=== PATIENT | male | born 1960 | race Caucasian/White ===

== ENCOUNTER 2017-05-25 20:47 | Observation (INO) | payer OTHER ==
[2017-05-25] MEDS ORDERED: ONDANSETRON 4 MG/2 ML VIAL ONE (21:13)
[2017-05-25] MEDS ORDERED: ONDANSETRON 4 MG/2 ML VIAL IVP ONE (21:16)
[2017-05-25] MEDS ORDERED: NS 1,000 ML IV ONE ×2 (21:17→22:17)
--- NOTE | 2017-05-25 21:26 | EDPHY ---
H & P Time Seen by Provider: 05/25/17 21:09 HPI/ROS: CHIEF COMPLAINT: Fever and chills HISTORY OF PRESENT ILLNESS: The patient has a head cold for the last 4 days the with mild headache and sore throat and nonproductive cough. Today he had colonoscopy around noon was home around 1:00 p.m.. At 1900 developed severe chills with some lower abdominal pain and nausea. Symptoms are severe but not associated with worsening headache or stiff neck. Some diarrhea. No recent foreign travel. Chills are severe. REVIEW OF SYSTEMS: Eye: no change in vision ENT: HPI no earache Cardiac: no chest pain or syncope Pulmonary: HPI Abdomen: HPI Musculoskeletal: no back pain Skin: no rash Neuro: no headache Constitutional: HPI : no urinary symptoms A comprehensive 10 point review of systems is otherwise negative aside from elements mentioned in the history of present illness. PAST MEDICAL HISTORY: Depression, bilateral hand surgery Social history: No recent foreign travel. General Appearance: Alert and conversant, cooperative. He is having active chills while we discussed his history. Eyes: No scleral icterus. ENT, Mouth: Normal mucous membranes. No pharyngeal erythema or exudate and no trismus. Respiratory: Normal respiratory effort, breath sounds equal, lungs are clear to auscultation. Cardiovascular: Regular rate and rhythm. Gastrointestinal: Suprapubic tenderness but no rebound or guarding. Neurological: Alert and oriented x3. Normally conversant. Face symmetric, normal movement and sensation in all extremities. Skin: Warm and dry, no rashes. Skin is hot to the touch. Musculoskeletal: No peripheral edema and no joint swelling. Normal range of motion of the neck, supple. Psychiatric: Not agitated. Emergency Department course/MDM: Plan for i-STAT and CT abdomen and pelvis to exclude perforation of intestine, with colonoscopy today and 2 polyps biopsied. Chest x-ray and influenza testing. 2199: CT abdomen pelvis no evidence of perforation per Dr. Carmona. Chest x-ray personally interpreted shows bronchitis but no pneumonia. 2234: Toradol not given because of creatinine 1.4. Fentanyl 100 mcg IV, Ativan 0.5 mg IV. Admission for supportive care. Patient has mild 2 beat clonus on each foot, serotonin syndrome was considered but he only got fentanyl and Versed for his procedure. He had symptoms on arrival and clearly is normal mentation and does not have delirium at this time. Admission supportive care as he still feels quite unwell. Smoking Status: Never smoked Constitutional: Initial Vital Signs Temperature (C) 37 C 05/25/17 20:57 Heart Rate 86 05/25/17 20:57 Respiratory Rate 20 05/25/17 20:57 Blood Pressure 138/92 H 05/25/17 20:57 O2 Sat (%) 94 05/25/17 20:57 O2 Delivery Mode Room Air Allergies/Adverse Reactions: wasp stings Allergy (Uncoded 05/25/17 21:01) Home Medications: Medication Instructions Recorded Depakote 02/06/16 Zoloft 100mg (*) 02/06/16 Medical Decision Making - Diagnostics Imaging Results: Imaging Impressions Chest X-Ray 05/25/17 21:24 Impression: Clear lungs. No explanation for fever and chills. Abdomen/Pelvis CT 05/25/17 21:31 Impression: 1. No pneumoperitoneum or evidence of bowel perforation. 2. No intraabdominal mass, lymphadenopathy, or localized inflammatory process. Findings discussed with Emergency Department physician, Bobby Abarca M.D., on May 25, 2017 at 2203. Differential Diagnosis: Differential for chills considered including but not limited to UTI, pneumonia, intestinal perforation, medication reaction Consult/Admit Bed Type: [place] [id number] - Data Points Laboratory Results: Laboratory Results 05/25/17 21:20 05/25/17 21:20 05/25/17 05/25/17 05/25/17 21:36 21:20 21:20 WBC 6.13 10^3/uL 10^3/uL (3.80-9.50) RBC 5.28 10^6/uL 10^6/uL (4.40-6.38) Hgb 17.8 g/dL H g/dL (13.7-17.5) POC Hgb Hct 49.3 % % (40.0-51.0) POC Hct MCV 93.4 fL fL (81.5-99.8) MCH 33.7 pg pg (27.9-34.1) MCHC 36.1 g/dL g/dL (32.4-36.7) RDW 12.5 % % (11.5-15.2) Plt Count 187 10^3/uL 10^3/uL (150-400) MPV 10.3 fL fL (8.7-11.7) Neut % (Auto) 74.7 % H % (39.3-74.2) Lymph % (Auto) 13.7 % L % (15.0-45.0) [place] % (Auto) 10.3 % % (4.5-13.0) Eos % (Auto) 0.7 % % (0.6-7.6) Baso % (Auto) 0.3 % % (0.3-1.7) Nucleat RBC Rel Count 0.0 % % (0.0-0.2) Absolute Neuts (auto) 4.58 10^3/uL 10^3/uL (1.70-6.50) Absolute Lymphs (auto) 0.84 10^3/uL L 10^3/uL (1.00-3.00) Absolute Monos (auto) 0.63 10^3/uL 10^3/uL (0.30-0.80) Absolute Eos (auto) 0.04 10^3/uL 10^3/uL (0.03-0.40) Absolute Basos (auto) 0.02 10^3/uL 10^3/uL (0.02-0.10) Absolute Nucleated RBC 0.00 10^3/uL 10^3/uL (0-0.01) Immature Gran % 0.3 % % (0.0-1.1) Immature Gran # 0.02 10^3/uL 10^3/uL (0.00-0.10) POC Sodium Sodium 141 mEq/L mEq/L (134-144) POC Potassium Potassium 4.5 mEq/L mEq/L (3.5-5.2) POC Chloride Chloride 99 mEq/L mEq/L (97-110) Carbon Dioxide 28 mEq/l mEq/l (22-31) Anion Gap 14 mEq/L mEq/L (8-16) POC BUN BUN 29 mg/dL H mg/dL (7-23) Creatinine 1.2 mg/dL mg/dL (0.7-1.3) POC Creatinine Estimated GFR > 60 Glucose 108 mg/dL H mg/dL (70-100) POC Glucose Calcium 9.9 mg/dL mg/dL (8.5-10.4) Nasal Influenza A PCR NEGATIVE FOR FLU A (NEGATIVE) Nasal Influenza B PCR NEGATIVE FOR FLU B (NEGATIVE) 05/25/17 21:18 WBC RBC Hgb POC Hgb 17.7 gm/dL H gm/dL (13.7-17.5) Hct POC Hct 52 % H % (40-51) MCV MCH MCHC RDW Plt Count MPV Neut % (Auto) Lymph % (Auto) [place] % (Auto) Eos % (Auto) Baso % (Auto) Nucleat RBC Rel Count Absolute Neuts (auto) Absolute Lymphs (auto) Absolute Monos (auto) Absolute Eos (auto) Absolute Basos (auto) Absolute Nucleated RBC Immature Gran % Immature Gran # POC Sodium 142 mEq/L mEq/L (134-144) Sodium POC Potassium 4.1 mEq/L mEq/L (3.3-5.0) Potassium POC Chloride 101 mEq/L mEq/L (97-110) Chloride Carbon Dioxide Anion Gap POC BUN 29 mg/dL H mg/dL (7-23) BUN Creatinine POC Creatinine 1.4 mg/dL H mg/dL (0.7-1.3) Estimated GFR Glucose POC Glucose 109 mg/dL H mg/dL (70-100) Calcium Nasal Influenza A PCR Nasal Influenza B PCR Medications Given: Acetaminophen (Tylenol) 650 mg PO Q4HRS PRN PRN Reason: Pain, Mild/Fever, Can Take PO Stop: 11/21/17 22:41 Last Admin: 05/26/17 00:32 Dose: 650 mg Throat Lozenges (Cepacol Lozenge) 1 ea PO PRN PRN PRN Reason: Sore Throat Stop: 11/22/17 00:09 Last Admin: 05/26/17 00:32 Dose: 1 ea Discontinued Medications Fentanyl (Sublimaze) 100 mcg IVP EDNOW ONE Stop: 05/25/17 22:38 Last Admin: 05/25/17 22:53 Dose: Not Given Sodium Chloride (Ns) 1,000 mls @ 0 mls/hr IV ONCE ONE; Wide Open PRN Reason: Protocol Stop: 05/25/17 21:18 Last Admin: 05/25/17 21:17 Dose: 1,000 mls Sodium Chloride (Ns) 1,000 mls @ 0 mls/hr IV EDNOW ONE; Wide Open PRN Reason: Protocol Stop: 05/25/17 22:18 Last Admin: 05/25/17 22:30 Dose: 1,000 mls Ketorolac Tromethamine (Toradol) 15 mg IVP EDNOW ONE Stop: 05/25/17 21:28 Last Admin: 05/25/17 21:43 Dose: Not Given Lorazepam (Ativan Injection) 1 mg IVP EDNOW ONE Stop: 05/25/17 22:39 Last Admin: 05/25/17 23:07 Dose: Not Given Lorazepam (Ativan Injection) 0.5 mg IVP EDNOW ONE Stop: 05/25/17 22:44 Last Admin: 05/25/17 22:53 Dose: 0.5 mg Ondansetron HCl (Zofran) 4 mg IVP EDNOW ONE Stop: 05/25/17 21:17 Last Admin: 05/25/17 21:17 Dose: 4 mg Point of Care Test Results: 05/25/17 21:18 POC Sodium 142 POC Potassium 4.1 POC Chloride 101 POC BUN 29 H POC Creatinine 1.4 H POC Glucose 109 H Departure - Departure Disposition: [facility] Acute Clinical Impression: Chills, Nausea Abdominal pain Qualifiers: Abdominal location: lower abdomen, unspecified Qualified Code(s): R10.30 - Lower abdominal pain, unspecified Condition: Good
[2017-05-25] MEDS ORDERED: KETOROLAC 30 MG/1 ML SDV IVP ONE (21:27)
[2017-05-25 22:04] LABS: % IMMATURE GRANULYOCYTES 0.3 % (0.0-1.1); ABSOLUTE IMMATURE GRANULOCYTES 0.02 10^3/uL (0.00-0.10); ADD DIFF? NO; ADD MORPH? NO; ADD SCAN? NO; ATYPICAL LYMPHOCYTE FLAG 10 (0-99); FRAGMENT RBC FLAG 0 (0-99); HEMATOCRIT 49.3 % (40.0-51.0); HEMOGLOBIN 17.8 g/dL (13.7-17.5); LEFT SHIFT FLG 0 (0-99); LIPEMIA HEMOLYSIS FLAG 90 (0-99); MEAN CELL HEMOGLOBIN 33.7 pg (27.9-34.1); MEAN CELL HEMOGLOBIN CONCENTR. 36.1 g/dL (32.4-36.7); MEAN CELL VOLUME 93.4 fL (81.5-99.8); MEAN PLATELET VOLUME 10.3 fL (8.7-11.7); PLATELET CLUMPS FLAG 0 (0-99); PLATELET COUNT 187 10^3/uL (150-400); RED BLOOD CELL COUNT 5.28 10^6/uL (4.40-6.38); RED CELL DISTRIBUTION WIDTH 12.5 % (11.5-15.2)
[2017-05-25 22:21] LABS: ANION GAP 14 mEq/L (8-16); CALCIUM 9.9 mg/dL (8.5-10.4); CARBON DIOXIDE 28 mEq/l (22-31); CHLORIDE 99 mEq/L (97-110); CREATININE 1.2 mg/dL (0.7-1.3); GLOMERULAR FILTRATION RATE > 60; GLUCOSE 108 mg/dL (70-100); POTASSIUM 4.5 mEq/L (3.5-5.2); SODIUM 141 mEq/L (134-144)
[2017-05-25] MEDS ORDERED: fentaNYL 100 MCG/2 ML INJ IVP ONE (22:37)
[2017-05-25] MEDS ORDERED: LORazepam 2 MG/ML INJ IVP ONE ×2 (22:38→22:43)
[2017-05-25] MEDS ORDERED: ACETAMINOPHEN 325 MG TAB PO PRN (22:42)
[2017-05-25] MEDS ORDERED: ONDANSETRON 4 MG/2 ML VIAL IVP PRN (22:42)
[2017-05-25] MEDS ORDERED: ONDANSETRON DISINTEGRATING 4 MG TAB PO PRN (22:42)
[2017-05-26] VITALS: RESP 16
[2017-05-26] MEDS ORDERED: CEPACOL LOZENGE PO PRN (00:10)
--- NOTE | 2017-05-26 01:57 | PDGENHP ---
History and Physical - Chief Complaint Chills - History of Present Illness 57 yo M w/ hx of depression presents with chills. Patient had a screening colonoscopy on the day of admission that was reportedly uncomplicated. He went home and noted severe chills that lasted several hours. When he felt he couldn' t warm up at home he decided to come to the ED. Of note, he reports having upper respiratory cold symptoms for the last 3-4 days. In the ED work-up was unremarkable including an abdominal CT ruling out perforation or serious complication from the procedure. In the ED there was some concern about possible serotonin syndrome (patient on sertraline) so patient was admitted for observation. History Information - Allergies/Home Medication List Allergies/Adverse Reactions: wasp stings Allergy (Uncoded 05/25/17 21:01) Home Medications: Depakote 02/06/16 [Last Taken Unknown] Zoloft 100mg (*) 02/06/16 [Last Taken Unknown] I have personally reviewed and updated: family history, medical history - Past Medical History Additional medical history: Depression - Family History Positive for: cancer Additional family history: Multiple family memebers with colon cancer, mother with breast cancer - Social History Smoking Status: Never smoked Review of Systems Review of Systems: ROS: 10pt was reviewed & negative except for what was stated in HPI & below Physical Exam Physical Exam: Temp Pulse Resp BP Pulse Ox 38.3 C 88 16 114/72 91 L 05/25/17 23:57 05/25/17 23:57 05/25/17 23:57 05/25/17 23:57 05/25/17 23:57 Constitutional: no apparent distress, not in pain Eyes: PERRL, EOMI Ears, Nose, Mouth, Throat: moist mucous membranes, no oral mucosal ulcers Cardiovascular: regular rate and rhythym, no murmur, rub, or gallop Respiratory: no respiratory distress, clear to auscultation Gastrointestinal: normoactive bowel sounds, soft, non-tender abdomen Genitourinary: no bladder fullness, no bladder tenderness Skin: warm, normal color Musculoskeletal: full muscle strength, no muscle tenderness Neurologic: AAOx3, CN II-XII Intact Psychiatric: interacting appropriately, not anxious Lab Data & Imaging Review 05/25/17 21:20 05/25/17 21:20 WBC 6.13 10^3/uL (3.80-9.50) 05/25/17 21:20 RBC 5.28 10^6/uL (4.40-6.38) 05/25/17 21:20 Hgb 17.8 g/dL (13.7-17.5) H 05/25/17 21:20 POC Hgb 17.7 gm/dL (13.7-17.5) H 05/25/17 21:18 Hct 49.3 % (40.0-51.0) 05/25/17 21:20 POC Hct 52 % (40-51) H 05/25/17 21:18 MCV 93.4 fL (81.5-99.8) 05/25/17 21:20 MCH 33.7 pg (27.9-34.1) 05/25/17 21:20 MCHC 36.1 g/dL (32.4-36.7) 05/25/17 21:20 RDW 12.5 % (11.5-15.2) 05/25/17 21:20 Plt Count 187 10^3/uL (150-400) 05/25/17 21:20 MPV 10.3 fL (8.7-11.7) 05/25/17 21:20 Neut % (Auto) 74.7 % (39.3-74.2) H 05/25/17 21:20 Lymph % (Auto) 13.7 % (15.0-45.0) L 05/25/17 21:20 [place] % (Auto) 10.3 % (4.5-13.0) 05/25/17 21:20 Eos % (Auto) 0.7 % (0.6-7.6) 05/25/17 21:20 Baso % (Auto) 0.3 % (0.3-1.7) 05/25/17 21:20 Nucleat RBC Rel Count 0.0 % (0.0-0.2) 05/25/17 21:20 Absolute Neuts (auto) 4.58 10^3/uL (1.70-6.50) 05/25/17 21:20 Absolute Lymphs (auto) 0.84 10^3/uL (1.00-3.00) L 05/25/17 21:20 Absolute Monos (auto) 0.63 10^3/uL (0.30-0.80) 05/25/17 21:20 Absolute Eos (auto) 0.04 10^3/uL (0.03-0.40) 05/25/17 21:20 Absolute Basos (auto) 0.02 10^3/uL (0.02-0.10) 05/25/17 21:20 Absolute Nucleated RBC 0.00 10^3/uL (0-0.01) 05/25/17 21:20 Immature Gran % 0.3 % (0.0-1.1) 05/25/17 21:20 Immature Gran # 0.02 10^3/uL (0.00-0.10) 05/25/17 21:20 POC Sodium 142 mEq/L (134-144) 05/25/17 21:18 Sodium 141 mEq/L (134-144) 05/25/17 21:20 POC Potassium 4.1 mEq/L (3.3-5.0) 05/25/17 21:18 Potassium 4.5 mEq/L (3.5-5.2) 05/25/17 21:20 POC Chloride 101 mEq/L (97-110) 05/25/17 21:18 Chloride 99 mEq/L (97-110) 05/25/17 21:20 Carbon Dioxide 28 mEq/l (22-31) 05/25/17 21:20 Anion Gap 14 mEq/L (8-16) 05/25/17 21:20 POC BUN 29 mg/dL (7-23) H 05/25/17 21:18 BUN 29 mg/dL (7-23) H 05/25/17 21:20 Creatinine 1.2 mg/dL (0.7-1.3) 05/25/17 21:20 POC Creatinine 1.4 mg/dL (0.7-1.3) H 05/25/17 21:18 Estimated GFR > 60 05/25/17 21:20 Glucose 108 mg/dL (70-100) H 05/25/17 21:20 POC Glucose 109 mg/dL (70-100) H 05/25/17 21:18 Calcium 9.9 mg/dL (8.5-10.4) 05/25/17 21:20 Nasal Influenza A PCR NEGATIVE FOR FLU A (NEGATIVE) 05/25/17 21:36 Nasal Influenza B PCR NEGATIVE FOR FLU B (NEGATIVE) 05/25/17 21:36 Imaging Review: CT A/P unremarkable, no perforation. Visualized and Interpreted Chest x-ray results: Yes Chest X-Ray results: no infiltrate, normal Assessment & Plan Assessment: 57 yo M admitted with chills in the setting of viral illness. Plan: 1. Fever, chills - Suspect viral illness noting upper respiratory symptoms for 3 -4 days prior to admission; flu negative. Unclear why symptoms were exacerbated a few hours after screening colonoscopy. There was some concern in the ED for serotonin syndrome noting patient is on sertraline and received fentanyl during the procedure, but this seems very unlikely as patient again received fentanyl in our ED and felt symptomatically improved. CT A/P without evidence of procedural complication. - Supportive care with APAP, IVF, and anti-emetics 2. Depression - On sertraline as outpatient, I see no reason to discontinue this at this time. Diet - Regular Code - Full Ppx - SCDs Dispo - Admit to observation status
[2017-05-26 05:22] LABS: % IMMATURE GRANULYOCYTES 0.3 % (0.0-1.1); ABSOLUTE IMMATURE GRANULOCYTES 0.03 10^3/uL (0.00-0.10); ADD DIFF? NO; ADD MORPH? NO; ADD SCAN? NO; ATYPICAL LYMPHOCYTE FLAG 0 (0-99); FRAGMENT RBC FLAG 0 (0-99); HEMOGLOBIN 14.7 g/dL (13.7-17.5); LEFT SHIFT FLG 0 (0-99); LIPEMIA HEMOLYSIS FLAG 90 (0-99); MEAN CELL HEMOGLOBIN 32.4 pg (27.9-34.1); MEAN CELL HEMOGLOBIN CONCENTR. 34.2 g/dL (32.4-36.7); MEAN CELL VOLUME 94.7 fL (81.5-99.8); MEAN PLATELET VOLUME 10.1 fL (8.7-11.7); PLATELET CLUMPS FLAG 10 (0-99); PLATELET COUNT 151 10^3/uL (150-400); RED BLOOD CELL COUNT 4.54 10^6/uL (4.40-6.38); RED CELL DISTRIBUTION WIDTH 12.4 % (11.5-15.2)
[2017-05-26 05:35] LABS: ANION GAP 11 mEq/L (8-16); CARBON DIOXIDE 24 mEq/l (22-31); CHLORIDE 106 mEq/L (97-110); CREATININE 1.4 mg/dL (0.7-1.3); GLOMERULAR FILTRATION RATE 52; GLUCOSE 111 mg/dL (70-100); POTASSIUM 5.3 mEq/L (3.5-5.2); SODIUM 141 mEq/L (134-144)
--- NOTE | 2017-05-26 09:51 | ASMTCASEMG ---
Living Arrangements What is your living Answers: With Spouse arrangement? Who do you live with? Type Of Residence What kind of residence do Answers: House you live in? Discharge Plan Comments Coordination Status Comments Notes: Pt is a 57 y/o man admitted for chills. Anticipates that pt will discharge independent when medically stable. No therapies ordered at this time. CM available for d/c needs. Plan: Independent Date Signed: 05/26/2017 09:51 AM Electronically Signed By:CHIDI Meraz
[2017-05-26 11:30] LABS: ALBUMIN 3.5 g/dL (3.5-5.0); BILIRUBIN,TOTAL 0.6 mg/dL (0.1-1.4); BILIRUBIN-CONJUGATED 0.2 mg/dL (0.0-0.5); BILIRUBIN-UNCONJUGATED 0.4 mg/dL (0.0-1.1); C-REACTIVE PROTEIN 41.7 mg/L (<10.0); TOTAL PROTEIN 5.8 g/dL (6.3-8.2)
[2017-05-26 11:49] VITALS: BP 118/74; PULSE 65; TEMP 98.4; O2SAT 95
[2017-05-26 11:58] LABS: PROCALCITONIN 0.54 ng/mL (0.02-0.10)
[2017-05-26] MEDS ORDERED: ZOLPIDEM TARTRATE 5 MG TAB PO PRN (14:21)
[2017-05-26] MEDS ORDERED: LORazepam 0.5 MG TAB PO PRN (14:21)
--- NOTE | 2017-05-26 16:29 | ASDISCHSUM ---
Discharge Information Plan Status:Home with No Needs Medically Cleared to Leave:05/25/2017 Discharge Date:05/26/2017 03:31 PM CM D/C Disposition: ADT D/C Disposition:Home, Routine, Self-Care Projected Discharge Date:05/26/2017 12:00 AM Transportation at D/C: Discharge Delay Reason: Follow-Up Date:05/26/2017 12:00 AM Discharge Slot: Final Diagnosis: Placement Information Patient Contact Information Contact Name:FELIPE Relationship: Address:[address] City:[place] Alternate Phone: [facility]/Zip Code:[place] [address] Email: Financial Information Financial Class:[facility] Primary Plan Desc:[place]ight[employer] Primary Plan Number:[id number] Secondary Plan Desc: Secondary Plan Number: Assessment Information [facility] Initial CM Assessment Living Arrangements What is your living Answers: With Spouse arrangement? Who do you live with? Type Of Residence What kind of residence do Answers: House you live in? Discharge Plan Comments Coordination Status Comments Notes: Pt is a 57 y/o man admitted for chills. Anticipates that pt will discharge independent when medically stable. No therapies ordered at this time. CM available for d/c needs. Plan: Independent Date Signed: 05/26/2017 09:51 AM Electronically Signed By:CHIDI Meraz Intervention Information
--- NOTE | 2017-05-26 18:23 | PDDCSUM ---
Discharge Summary Discharge Summary: DISCHARGE SUMMARY FOLLOW-UP ITEMS: Blood cultures pending at time of discharge Repeat creatinine BUN lytes and CBC next week DATE OF ADMISSION: 05/25/2017 DATE OF DISCHARGE: 05/26/2017 DISCHARGE DIAGNOSES: 1. Acute URI 2. Acute fever 3. Acute kidney injury CONSULTATIONS: None PROCEDURES / IMAGING: Chest x-ray demonstrating no infiltrate, CT of the abdomen demonstrating no perforation or inflammation CHIEF COMPLAINT: Acute fever and chills SUBJECTIVE: Patient is feeling well at time discharge, he continues to experience some sinus congestion PHYSICAL EXAM ON DISCHARGE: Systolic blood pressure is 130, heart rate 80, afebrile since midnight last night, satting well on room air, heart rhythm is regular, lungs are clear to auscultation bilaterally LABS ON DISCHARGE: Creatinine 1.4, potassium 5.3, white blood cell count 73225, hemoglobin 14.7, flu PCR negative, ESR normal, CRP 41.7 HOSPITAL COURSE BY PROBLEM: The patient presented with acute fever and sinus congestion, most likely secondary to a viral URI. The symptoms occurred in the context of recently undergoing colonoscopy as well as lab values indicating acute kidney injury with serum creatinine level of 1.4. Given the patient's possibility for bacteremia as well as hypovolemia, he was observed in the hospital overnight, administered IV fluids, and evaluated for possible infectious source. CT of his abdomen demonstrated no intra-abdominal pathology comma chest x-ray demonstrated no overt airspace disease, and it was hypothesized that the most likely cause of his presenting symptoms was viral URI. The patient declined respiratory viral panel, but he did except supportive care with Mucinex, Zyrtec , guaifenesin/codeine. The patient will use these medications supportively over the next several days, and follow up with his primary care provider next week to reassess symptoms, re-evaluate his lab values to ensure his white blood cell count has resolved, serum creatinine level is stable. The patient's serum creatinine level of 1.4 was only mildly elevated from his baseline, which is around 1.2, and is most likely chronically marginally elevated due to a muscle mass. Encourage the patient to maintain good oral hydration, and he is able to do so at this time. His blood cultures are pending at time of discharge, and if they do come back with any evidence of bacteremia, the patient will be notified immediately. DISCHARGE MEDICATIONS: Please see official discharge medication reconciliation sheet in chart , continue home medications with the addition Mucinex scheduled twice daily x5 days, guaifenesin/codeine as needed, Zyrtec 10 mg at bedtime. DISCHARGE INSTRUCTIONS: Please follow up with primary care provider next week and have labs performed prior to that appointment.
[2017-05-26] MEDS ORDERED: DIVALPROEX ER 500 MG TAB PO SCH (21:00)
[2017-05-27] MEDS ORDERED: SERTRALINE HCL 50 MG TAB PO SCH (09:00)
[2017-05-27] MEDS ORDERED: DIVALPROEX ER 500 MG TAB PO SCH (09:00)
[2017-05-27] MEDS ORDERED: DIVALPROEX ER 250 MG TAB PO SCH (09:00)
[2017-05-27] MEDS ORDERED: MULTIVITAMINS 1 EACH TAB PO SCH (09:00)
== END 2017-05-26 15:31 | disposition home or self-care (01) ==
LOC: F3E 23:49
PROVIDERS: ADMIT Student in an Organized Health Care Education/Training Program; ATTEND Internal Medicine
PROC: 3E0337Z Introduction of Electrolytic and Water Balance Substance into Peripheral Vein, Percutaneous Approach (ICD-10-PCS; principal; 2017-05-25)
DX: J06.9 Acute upper respiratory infection, unspecified (principal); R50.9 Fever, unspecified; N17.9 Acute kidney failure, unspecified; E86.9 Volume depletion, unspecified; R10.30 Lower abdominal pain, unspecified; R11.0 Nausea; F32.9 Major depressive disorder, single episode, unspecified; Z80.0 Family history of malignant neoplasm of digestive organs; Z80.3 Family history of malignant neoplasm of breast; Z86.010 Personal history of colon polyps; Z98.890 Other specified postprocedural states
CPT/HCPCS: 71020; 74176; 96361; 96374; 99285; G0378; 82947-QW; J2060; J2405; J3010

== ENCOUNTER 2017-06-18 15:57 | Emergency (ER) | payer BC, OTHER ==
[2017-06-18 16:07] VITALS: PULSE 82
[2017-06-18] MEDS ORDERED: NS 1,000 ML IV ONE (16:37)
[2017-06-18 17:13] LABS: PLATELET COUNT 144 10^3/uL (150-400)
--- NOTE | 2017-06-18 17:19 | EDPHY ---
H & P Stated Complaint: chills, cough, aches, h/a x 3 weeks Time Seen by Provider: 06/18/17 16:18 HPI/ROS: CHIEF COMPLAINT: Cough, fever, myalgias HISTORY OF PRESENT ILLNESS: The patient has had a 4 week history of intermittent fever and myalgias. His symptoms initially began after colonoscopy. He was hospitalized for possible bacteremia. The patient has been treated with prednisone and antibiotics for a sinus infection 2 times over the past month. He reports over the past several days he has had worsening cough, subjective fever, chills and myalgias. The patient complains of a mild frontal headache. He denies acute numbness or weakness. REVIEW OF SYSTEMS: A comprehensive 10 point review of systems is otherwise negative aside from elements mentioned in the history of present illness. Source: Patient Exam Limitations: No limitations - Personal History Current Tetanus/Diphtheria Vaccine: Unsure Current Tetanus Diphtheria and Acellular Pertussis (TDAP): Unsure - Medical/Surgical History Hx Asthma: No Hx Chronic Respiratory Disease: No Hx Diabetes: No Hx Cardiac Disease: No Hx Renal Disease: No Hx Cirrhosis: No Hx Alcoholism: No Hx HIV/AIDS: No Hx Splenectomy or Spleen Trauma: No Other PMH: depression, bilateral hand surgery, hernia, mood disorder - Social History Smoking Status: Never smoked - Physical Exam Exam: General Appearance: Alert, no distress Eyes: Pupils equal and round no pallor or injection ENT, Mouth: Mucous membranes moist Respiratory: There are no retractions, lungs are clear to auscultation Cardiovascular: Regular rate and rhythm Gastrointestinal: Abdomen is soft and nontender, no masses, bowel sounds normal Neurological: A&O, normal motor function, normal sensory exam, normal cranial nerves Skin: Warm and dry, no rashes Musculoskeletal: Neck is supple nontender Extremities: symmetrical, full range of motion Constitutional: Initial Vital Signs Temperature (C) 37.7 C 06/18/17 16:04 Heart Rate 82 06/18/17 16:04 Respiratory Rate 18 06/18/17 16:04 Blood Pressure 148/82 H 06/18/17 16:04 O2 Sat (%) 94 06/18/17 16:04 O2 Delivery Mode Room Air Allergies/Adverse Reactions: wasp stings Allergy (Uncoded 05/25/17 21:01) Home Medications: Medication Instructions Recorded Divalproex ER [Depakote ER 250 MG 250 mg PO DAILY 02/06/16 (*)] Sertraline HCl [Zoloft 50mg (*)] 50 mg PO DAILY 02/06/16 Acetaminophen [Tylenol 325mg (*)] 650 mg PO Q4HRS PRN tab 05/26/17 Benzocaine/Menthol 15/4 [Cepacol 1 ea PO PRN PRN lozenge 05/26/17 Lozenge] Cetirizine [ZyrTEC 10 mg (*)] 10 mg PO HS #10 tab 05/26/17 Codeine Phosphate/Guaifenesin 10 ml PO Q4 PRN #200 ml 05/26/17 [Guaifen-Codeine 200-20 mg/10Ml] Divalproex ER [Depakote ER 500 MG 1,000 mg PO HS 05/26/17 (*)] Divalproex ER [Depakote ER 500 MG 500 mg PO DAILY 05/26/17 (*)] LORazepam [Ativan (*)] 0.5 mg PO DAILY PRN 05/26/17 Multivitamins [Multivitamin (*)] 1 each PO DAILY 05/26/17 Zolpidem Tartrate [Ambien 5MG (*)] 5 - 10 mg PO HS PRN 05/26/17 guaiFENesin [Mucinex 600 MG (*)] 600 mg PO BID #10 tab.er 05/26/17 Medical Decision Making - Diagnostics Imaging Results: Imaging Impressions Chest X-Ray 06/18/17 16:37 Impression: Clear lungs. No edema or pneumonia. ED Course/Re-evaluation: The patient presents to the ED for evaluation of a worsening cough, fever and myalgias. The patient has had a sinus infection intermittently for the past several weeks. The patient was noted to be hemodynamically stable. He has no clinical evidence of meningitis. Given his complaints of fever and cough a chest x-ray was ordered which demonstrates no evidence of a pneumonia. The patient's laboratory studies are reassuring. His influenza assay is positive. The patient will be given Tamiflu, albuterol and Marion as needed for severe pain. He is advised to follow up with his primary care provider. The patient is instructed to return to the ED for markedly worsening respiratory symptoms, vomiting or other concerns. Differential Diagnosis: Differential diagnosis considered includes asthma, bronchitis, pneumonia, influenza - Data Points Laboratory Results: Laboratory Results 06/18/17 17:05 06/18/17 17:05 06/18/17 06/18/17 06/18/17 17:05 17:05 16:45 WBC 3.84 10^3/uL 10^3/uL (3.80-9.50) RBC 4.70 10^6/uL 10^6/uL (4.40-6.38) Hgb 15.7 g/dL g/dL (13.7-17.5) Hct 44.4 % % (40.0-51.0) MCV 94.5 fL fL (81.5-99.8) MCH 33.4 pg pg (27.9-34.1) MCHC 35.4 g/dL g/dL (32.4-36.7) RDW 12.5 % % (11.5-15.2) Plt Count 144 10^3/uL L 10^3/uL (150-400) MPV 10.1 fL fL (8.7-11.7) Neut % (Auto) 60.9 % % (39.3-74.2) Lymph % (Auto) 17.7 % % (15.0-45.0) [place] % (Auto) 18.5 % H % (4.5-13.0) Eos % (Auto) 1.6 % % (0.6-7.6) Baso % (Auto) 1.0 % % (0.3-1.7) Nucleat RBC Rel Count 0.0 % % (0.0-0.2) Absolute Neuts (auto) 2.34 10^3/uL 10^3/uL (1.70-6.50) Absolute Lymphs (auto) 0.68 10^3/uL L 10^3/uL (1.00-3.00) Absolute Monos (auto) 0.71 10^3/uL 10^3/uL (0.30-0.80) Absolute Eos (auto) 0.06 10^3/uL 10^3/uL (0.03-0.40) Absolute Basos (auto) 0.04 10^3/uL 10^3/uL (0.02-0.10) Absolute Nucleated RBC 0.00 10^3/uL 10^3/uL (0-0.01) Immature Gran % 0.3 % % (0.0-1.1) Immature Gran # 0.01 10^3/uL 10^3/uL (0.00-0.10) Sodium 139 mEq/L mEq/L (135-145) Potassium 4.5 mEq/L mEq/L (3.5-5.2) Chloride 100 mEq/L mEq/L (97-110) Carbon Dioxide 27 mEq/l mEq/l (22-31) Anion Gap 12 mEq/L mEq/L (8-16) BUN 23 mg/dL mg/dL (7-23) Creatinine 1.1 mg/dL mg/dL (0.7-1.3) Estimated GFR > 60 Glucose 80 mg/dL mg/dL (70-100) Calcium 9.2 mg/dL mg/dL (8.5-10.4) Nasal Influenza A PCR FLU A DETECTED H (NEGATIVE) Nasal Influenza B PCR NEGATIVE FOR FLU B (NEGATIVE) Medications Given: Discontinued Medications Sodium Chloride (Ns) 1,000 mls @ 0 mls/hr IV ONCE ONE; Wide Open PRN Reason: Protocol Stop: 06/18/17 16:38 Last Admin: 06/18/17 17:07 Dose: 1,000 mls Departure - Departure Disposition: Home, Routine, Self-Care Clinical Impression: Influenza Condition: Good Instructions: Influenza (ED) Additional Instructions: 1. Tamiflu as needed for influenza. 2. Albuterol as needed for cough. 3. Take Ibuprofen or Motrin 600 mg by mouth three times a day. 4. Marion as needed for severe pain. Referrals: Rosalino Wong MD [Primary Care Provider] - As per Instructions
[2017-06-18 18:08] VITALS: BP 138/82; RESP 16; TEMP 100.8; O2SAT 95
== END 2017-06-18 18:08 | disposition home or self-care (01) ==
PROC: 3E0337Z Introduction of Electrolytic and Water Balance Substance into Peripheral Vein, Percutaneous Approach (ICD-10-PCS; principal; 2017-06-18)
DX: J11.1 Influenza due to unidentified influenza virus with other respiratory manifestations (principal); E86.9 Volume depletion, unspecified